=== PATIENT | male | born 1970 | race Hispanic/Latino ===

== ENCOUNTER 2017-07-08 15:30 | Emergency (ER) | payer OTHER ==
[2017-07-08] MEDS ORDERED: Sterile Water 10 ML ONE (16:15)
[2017-07-08] MEDS ORDERED: cefTRIAXone\\ROCEPHIN 1 GM VIAL ONE (16:15)
== END 2017-07-08 16:42 | disposition home or self-care (01) ==
LOC: MADERS 15:30
DX: H66.92 Otitis media, unspecified, left ear (principal)
CPT/HCPCS: 96372; A4216; J0696